=== PATIENT | female | born 1965 | race Caucasian/White ===

== ENCOUNTER → 2016-09-08 | Outpatient (CLI) | payer BC ==
--- NOTE | ~2016-09-08 | MY11 ---
[facility] A Service of [facility] RADIOLOGY TEXT RESULTS PATIENT: ERIKA FRANCIS LOCATION: [facility] : 61 UNIT #: [id number] AGE: [address]: MORIAH MOON SEX: F ORDER DR: [id number] [facility] [address] [place], [place] [address] [id number] O MR#: [id number] Acc #: [id number] NAME: ERIKA FRANCIS : 1965 SEX: F STUDY DATE/TIME: 09/08/2016 9:39 UNIT: [facility] ROOM: STUDY DESCRIPTION: MY Mammogram Screening Dig Abraham Attending Physician: Chelsey Greer Ordering Physician: Karen Burris M.D. Primary Care Physician: Supriya Burris A.P.R.N. MEDICAL IMAGING REPORT This report is preliminary unless electronic signature is present EXAM Bilateral digital screening mammogram with CAD. HISTORY Routine screening. No current complaints. No known history of breast cancer. COMPARISON 06/19/2015 and 05/30/2014 and 03/29/2013. FINDINGS MLO and CC digital views of each breast were obtained. The exam was reviewed with an FDA-approved CAD. The breasts are heterogeneously dense. There are no masses or abnormal calcifications. IMPRESSION No change and no evidence of malignancy. Patients over the age of 40 are entered into a reminder system with target due date for the next mammogram. A result letter will also be sent to the patient. BIRADS: 1 Negative. Dictated by... Greg Glover M.D. THIS IS AN ELECTRONICALLY VERIFIED REPORT Greg Glover M.D. at 09/09/2016 11:26 AM ÁLVARO/andrea TD: 09/08/2016 15:35 JOB #: [id number] [facility] A Service of [facility] RADIOLOGY TEXT RESULTS PATIENT: ERIKA FRANCIS LOCATION: [facility] : 61 UNIT #: [id number] AGE: [address]: MORIAH MOON SEX: F ORDER DR: MEDICAL IMAGING REPORT COPY
== END | disposition home or self-care (01) ==
LOC: CWCC 09:01
DX: Z12.31 Encounter for screening mammogram for malignant neoplasm of breast (principal)
CPT/HCPCS: G0202